=== PATIENT | male | born 1950 | race Caucasian/White ===

== ENCOUNTER 2022-05-04 13:33 | Outpatient (CLI) | payer MEDICARE, BC | END 2022-05-04 13:34 | disposition home or self-care (01) | LOC: TBSIIMAG 13:33 | PROVIDERS: ATTEND Family Medicine | DX: M47.26 Other spondylosis with radiculopathy, lumbar region (principal); M47.27 Other spondylosis with radiculopathy, lumbosacral region; M47.25 Other spondylosis with radiculopathy, thoracolumbar region | CPT/HCPCS: 72100; 72148 ==